=== PATIENT | female | born 1990 | race Caucasian/White ===

== ENCOUNTER 2021-03-20 16:15 | Emergency (ER) | payer OTHER ==
[~2021-03-20 16:15] MED LIST: FLEXERIL10 MG PO; MEDROL 4MG DOSEP4 MG PO; NORCO 5-325 TA1 EACH PO
== END 2021-03-20 21:50 | disposition home or self-care (01) ==
LOC: FER 16:15
DX: S01.511A Laceration without foreign body of lip, initial encounter (principal); W22.8XXA Striking against or struck by other objects, initial encounter; Y93.89 Activity, other specified
CPT/HCPCS: 99282